=== PATIENT | female | born 1980 ===

== ENCOUNTER 2017-01-24 06:47 | Inpatient (IN) ==
[2017-01-22 12:05] LABS: Basophils % 0.3 % (0.0-0.8); Eosinophils # 0.2 10*3/uL (0.0-0.87); Eosinophils % 1.5 % (0.00-10.9); Hemoglobin 13.4 GM/DL (12.0-16.0); Immature Granulocytes % 0.4 %; Immature Granulocytes Absolute 0.04 #; Lymphocytes # 2.7 10*3/uL (1.4-4.0); Lymphocytes % 25.3 % (21.3-54.2); Mean Corpuscular HGB Conc 33.5 GM/DL (32-36); Mean Corpuscular Hemoglobin 28 PG (27-34); Mean Platelet Volume 10.4 FL (9.6-12.0); Monocytes # 0.6 10*3/uL (0.11-0.8); Monocytes % 5.5 % (1.7-12.7); Neutrophils # 7.3 10*3/uL (1.4-7.4); Platelet Count 255 T/CUMM (130-400); Red Blood Count 4.82 MC/CUMM (3.8-5.5); Red Cell Distribution Width 13.6 % (9.3-17.3); White Blood Count 10.9 T/CUMM (4-12)
[2017-01-22 12:20] LABS: Apearance,Urine Slightly Hazy (Clear); Bilirubin,Urine Negative (Negative); Blood, Urine Large mg/dL (Negative); Glucose,Urine (UA) >=500 mg/dL (Negative); Ketones,Urine Negative (Negative); Mucus,Urine Occasional /LPF (Occasional); Nitrite,Urine Negative (Negative); Protein,Urine 30 MG/DL; RBC,Urine 399 /HPF (0-4); Squamous Epithelial Cell,Urine Occasional /HPF (0-10); Urine Specific Gravity 1.026 (1.001-1.035); Urine Urobilinogen < 2.0 EU/DL (0.2-1.0); WBC,Urine 5 /HPF (0-6)
[2017-01-22 12:21] LABS: Urine Color Amber (Yellow)
[2017-01-22 12:41] LABS: Alanine Aminotransferase 21 U/L (13-56); Albumin 3.3 G/DL (3.4-5.0); Alkaline Phosphatase 148 U/L (45-117); Aspartate Amino Transferase 6 U/L (0-37); Bilirubin,Total < 0.39 MG/DL (0.2-1.0); Blood Urea Nitrogen 12 MG/DL (7-18); Calcium 8.4 MG/DL (8.5-10.1); Cholesterol 137 MG/DL (50-200); Glucose 326 MG/DL (74-106); HDL Cholesterol 31 MG/DL (40-60); Osmolality,Calculated 280.2 MOS/KG (273-304); Potassium 4.2 MMOL/L (3.5-5.1); Risk Ratio 4.42; Sodium 134 MMOL/L (136-145); Total Protein 6.9 G/DL (6.4-8.3); Triglycerides 204 MG/DL (2-150); VLDL CHOLESTEROL 40.8 MG/DL
[2017-01-22 13:45] LABS: HIV Antigen/Antibody Result Nonreactive (Nonreactive)
[~2017-01-24 06:47] MED LIST: AMPICILLIN/SULBACTAM 3,000 MG in SODIUM CHLORIDE 0.9% 100 ML IV ONE
[2017-01-24] MEDS ORDERED: AMPICILLIN/SULBACTAM 3,000 MG VIAL ONE (08:39)
[2017-01-24] MEDS ORDERED: LACTATED RINGERS 1,000 ML IV SCH (09:30)
[2017-01-24] MEDS ORDERED: DEXTROSE 50% 25 GM/50 ML VIAL IV PRN ×2 (10:12→12:39)
[2017-01-24] MEDS ORDERED: GLUCAGON 1 MG VIAL IM PRN ×2 (10:12→12:39)
[2017-01-24] MEDS ORDERED: MAGNESIUM HYDROXIDE SUSP 30 ML UDCUP PO PRN (10:12)
[2017-01-24] MEDS ORDERED: BENZOCAINE/MENTHOL LOZENGE 18/BOX PO PRN (10:12)
[2017-01-24] MEDS ORDERED: ACETAMINOPHEN 325 MG TABLET PO PRN (10:12)
[2017-01-24] MEDS ORDERED: DOCUSATE SODIUM 100 MG CAPSULE PO PRN (10:12)
[2017-01-24] MEDS ORDERED: ONDANSETRON 4 MG/2 ML VIAL IV PRN (10:12)
[2017-01-24] MEDS ORDERED: BISACODYL 10 MG SUPP RECTAL PRN (10:12)
[2017-01-24] MEDS ORDERED: NALOXONE 0.4 MG/ML VIAL IV PRN (10:15)
[2017-01-24] MEDS ORDERED: KETAMINE 500 MG/10 ML VIAL ONE (10:19)
[2017-01-24 10:26] LABS: Apearance,Urine CLEAR (Clear); Bacteria,Urine Occasional /HPF (Few); Bilirubin,Urine Negative (Negative); Blood, Urine Negative (Negative); Glucose,Urine (UA) >=500 mg/dL (Negative); Ketones,Urine Negative (Negative); Mucus,Urine Occasional /LPF (Occasional); Nitrite,Urine Negative (Negative); Protein,Urine Negative; RBC,Urine <1 /HPF (0-4); Squamous Epithelial Cell,Urine Occasional /HPF (0-10); Urine Color Yellow (Yellow); Urine Specific Gravity 1.009 (1.001-1.035); Urine Urobilinogen < 2.0 EU/DL (0.2-1.0); WBC,Urine <1 /HPF (0-6)
[2017-01-24] MEDS ORDERED: HYDROmorphone PCA 30 MG/30 ML SYRINGE IV SCH (10:30)
[2017-01-24] MEDS ORDERED: PROPOFOL 200 MG/20 ML VIAL IV ONE (10:33)
[2017-01-24] MEDS ORDERED: MIDAZOLAM 2 MG/2 ML VIAL ONE (10:34)
[2017-01-24] MEDS ORDERED: ACETAMINOPHEN 1,000 MG/100 ML VIAL IV ONE (10:34)
[2017-01-24] MEDS ORDERED: NEOSTIGMINE 10 MG/10 ML VIAL ONE (10:34)
[2017-01-24] MEDS ORDERED: METOCLOPRAMIDE 10 MG/2 ML VIAL ONE (10:34)
[2017-01-24] MEDS ORDERED: GLYCOPYRROLATE 0.4 MG/2 ML VIAL ONE (10:34)
[2017-01-24] MEDS ORDERED: SEVOFLURANE 1 UNIT/15 MINUTE INH ONE (10:34)
[2017-01-24] MEDS ORDERED: ONDANSETRON 4 MG/2 ML VIAL ONE (10:34)
[2017-01-24] MEDS ORDERED: SUCCINYLCHOLINE 200 MG/10 ML VIAL ONE (10:35)
[2017-01-24] MEDS ORDERED: SODIUM CHLORIDE 0.9% 1,000 ML IV ONE (10:35)
[2017-01-24] MEDS ORDERED: ROCURONIUM 100 MG/10 ML VIAL IV ONE (10:35)
[2017-01-24] MEDS ORDERED: HYDROmorphone 2 MG/1 ML VIAL ONE (10:38)
[2017-01-24] MEDS ORDERED: ALBUTEROL 2.5 MG/3 ML NEB RESP TX PRN (11:58)
[2017-01-24] MEDS: LACTATED RINGERS 1,000 ML IV SCH (18:00)
[2017-01-24] MEDS: INSULIN GLARGINE 100 UNIT/ML SUBCUT SCH (21:35)
[2017-01-25] MEDS: LACTATED RINGERS 1,000 ML IV SCH ×2 (00:13→05:15)
[2017-01-25 06:28] LABS: Basophils % 0.2 % (0.0-0.8); Eosinophils # 0.1 10*3/uL (0.0-0.87); Eosinophils % 0.6 % (0.00-10.9); Hematocrit 38.1 VOL% (35.7-47.0); Hemoglobin 12.3 GM/DL (12.0-16.0); Immature Granulocytes % 0.5 %; Immature Granulocytes Absolute 0.07 #; Lymphocytes # 2.2 10*3/uL (1.4-4.0); Lymphocytes % 16.8 % (21.3-54.2); Mean Corpuscular HGB Conc 32.3 GM/DL (32-36); Mean Corpuscular Hemoglobin 27 PG (27-34); Mean Corpuscular Volume 84.7 FL (87-102); Mean Platelet Volume 10.3 FL (9.6-12.0); Monocytes # 1.1 10*3/uL (0.11-0.8); Monocytes % 8.5 % (1.7-12.7); Neutrophils # 9.5 10*3/uL (1.4-7.4); Neutrophils % 73.4 % (38.7-73.9); Platelet Count 262 T/CUMM (130-400); Red Cell Distribution Width 13.9 % (9.3-17.3)
[2017-01-25] MEDS: IBUPROFEN 800 MG TABLET PO PRN ×2 (07:51→20:59)
[2017-01-25] MEDS: ATORVASTATIN 20 MG TABLET PO SCH (09:22)
[2017-01-25] MEDS: VENLAFAXINE XR 75 MG CAPSULE PO SCH (09:23)
[2017-01-25] MEDS: LOSARTAN 50 MG TABLET PO SCH (09:23)
[2017-01-25] MEDS ORDERED: MEPERIDINE 50 MG/1 ML VIAL IV PRN (11:16)
[2017-01-25] MEDS ORDERED: CLINDAMYCIN INJ 900 MG in PREMIX 1 EACH IV SCH (12:00)
[2017-01-25] MEDS ORDERED: metFORMIN 500 MG TABLET PO SCH (12:00)
[2017-01-25] MEDS: oxyCODONE/ACETAMINOPHEN 5-325 MG TABLET PO PRN ×2 (12:01→20:58)
[2017-01-25] MEDS: CLINDAMYCIN 300 MG CAPSULE PO SCH ×2 (12:11→18:06)
[2017-01-25] MEDS: ONDANSETRON 4 MG TABLET PO PRN ×2 (12:55→20:59)
[2017-01-25] MEDS: INSULIN GLARGINE 100 UNIT/ML SUBCUT SCH (21:11)
[2017-01-26] MEDS: CLINDAMYCIN 300 MG CAPSULE PO SCH ×3 (00:14→12:05)
[2017-01-26] MEDS ORDERED: METOCLOPRAMIDE 10 MG TABLET PO SCH (06:00)
[2017-01-26] MEDS ORDERED: metFORMIN 500 MG TABLET PO SCH (08:00)
[2017-01-26] MEDS: VENLAFAXINE XR 75 MG CAPSULE PO SCH (09:34)
[2017-01-26] MEDS: ATORVASTATIN 20 MG TABLET PO SCH (09:34)
[2017-01-26] MEDS: LOSARTAN 50 MG TABLET PO SCH (09:34)
[2017-01-26] MEDS ORDERED: MAGNESIUM CITRATE 300 ML BOTTLE PO ONE (10:09)
[2017-01-26 11:51] VITALS: BP 125/63
== END 2017-01-26 14:50 | disposition home or self-care (01) | DRG 513 ==
LOC: N.OR 06:47 → N.SDSINP 06:48 → N.OB 11:33
PROVIDERS: ADMIT Obstetrics & Gynecology; ATTEND Obstetrics & Gynecology

== ENCOUNTER 2020-10-06 10:06 | Inpatient (IN) ==
[2020-10-06 10:39] LABS: Basophils % 0.3 % (0.0-0.8); Eosinophils # 0.2 10*3/uL (0.0-0.87); Eosinophils % 2.1 % (0.00-10.9); Hematocrit 42.2 VOL% (35.7-47.0); Hemoglobin 13.6 GM/DL (12.0-16.0); Immature Granulocytes % 0.4 %; Immature Granulocytes Absolute 0.04 #; Lymphocytes # 3.4 10*3/uL (1.4-4.0); Lymphocytes % 29.6 % (21.3-54.2); Mean Corpuscular HGB Conc 32.2 GM/DL (32-36); Mean Corpuscular Volume 83.6 FL (87-102); Monocytes % 7.5 % (1.7-12.7); Neutrophils % 60.1 % (38.7-73.9); Platelet Count 363 T/CUMM (130-400); Red Blood Count 5.05 MC/CUMM (3.8-5.5); Red Cell Distribution Width 14.6 % (9.3-17.3); White Blood Count 11.4 T/CUMM (4-12)
[2020-10-06 10:57] LABS: Alanine Aminotransferase 21 U/L (13-56); Albumin 3.8 G/DL (3.4-5.0); Alkaline Phosphatase 103 U/L (45-117); Aspartate Amino Transferase 20 U/L (0-37); Bilirubin,Total < 0.39 MG/DL (0.20-1.00); Blood Urea Nitrogen 23 MG/DL (7-18); Calcium 9.4 MG/DL (8.5-10.1); Carbon Dioxide 23 MMOL/L (21-32); Estimated Glom Filtration Rate 105 ML/MIN; Glucose 157 MG/DL (74-106); Osmolality,Calculated 285.4 MOS/KG (273-304); Potassium 4.2 MMOL/L (3.5-5.1); Sodium 140 MMOL/L (136-145); Total Protein 7.2 G/DL (6.4-8.2)
[2020-10-06] MEDS ORDERED: ENOXAPARIN 150 MG/ML SYRINGE SUBCUT STA (11:10)
[2020-10-06] MEDS ORDERED: NITROGLYCERIN 2% OINT 1 INCH/GM PACK TOP STA (11:10)
[2020-10-06] MEDS ORDERED: ASPIRIN 325 MG TABLET PO STA (11:10)
[2020-10-06] MEDS ORDERED: ENOXAPARIN 30 MG/0.3 ML SYRINGE ONE (11:20)
[2020-10-06] MEDS ORDERED: ENOXAPARIN 120 MG/0.8 ML SYRINGE SUBCUT ONE (11:20)
[2020-10-06] MEDS ORDERED: MAGNESIUM SULF RIDER 2 GM/50 ML PREMIX IV PRN (12:26)
[2020-10-06] MEDS ORDERED: diphenhydrAMINE CAP 50 MG CAPSULE PO ONE (12:26)
[2020-10-06] MEDS ORDERED: DIAZEPAM 5 MG TABLET PO ONE (12:26)
[2020-10-06] MEDS ORDERED: POTASSIUM CHLORIDE RIDER 10 MEQ/100 ML PREMIX IV PRN (12:26)
[2020-10-06] MEDS ORDERED: SODIUM CHLORIDE 0.45% 1,000 ML IV SCH (12:30)
[2020-10-06 13:01] LABS: Risk Ratio 4.07; VLDL Cholesterol 21.6 MG/DL
[2020-10-06] MEDS ORDERED: ONDANSETRON 4 MG/2 ML VIAL IV PRN (13:45)
[2020-10-06] MEDS ORDERED: DEXTROSE 50% 25 GM/50 ML VIAL IV PRN (13:45)
[2020-10-06] MEDS ORDERED: ACETAMINOPHEN 325 MG TABLET PO PRN (13:45)
[2020-10-06] MEDS ORDERED: ZALEPLON 5 MG CAPSULE PO PRN (13:45)
[2020-10-06] MEDS ORDERED: ALBUTEROL/IPRATROPIUM 3 ML NEB RESP TX PRN (13:45)
[2020-10-06] MEDS ORDERED: GLUCAGON 1 MG VIAL IM PRN (13:45)
[2020-10-06] MEDS ORDERED: DOCUSATE SODIUM 100 MG CAPSULE PO PRN (13:45)
[2020-10-06] MEDS ORDERED: ALUMINUM/MAGNES/SIMETH MAX STR 30 ML UDCUP PO PRN (13:45)
[2020-10-06] MEDS ORDERED: diphenhydrAMINE CAP 25 MG CAPSULE ONE (14:51)
[2020-10-06] MEDS ORDERED: LIDOCAINE 1% 20 ML VIAL ONE (15:14)
[2020-10-06] MEDS ORDERED: fentaNYL 100 MCG/2 ML VIAL ONE (15:31)
[2020-10-06] MEDS ORDERED: MIDAZOLAM 2 MG/2 ML VIAL ONE (15:31)
[2020-10-06] MEDS ORDERED: HEPARIN 5,000 UNIT/1 ML VIAL ONE (15:42)
[2020-10-06] MEDS ORDERED: TIROFIBAN 5,000 MCG/100 ML PREMIX IV ONE (15:43)
[2020-10-06] MEDS ORDERED: TICAGRELOR 90 MG TABLET ONE (16:12)
[2020-10-06] MEDS ORDERED: NITROGLYCERIN DRIP 50 MG/250 ML BOTTLE IV ONE (16:16)
[2020-10-06] MEDS ORDERED: FAMOTIDINE 20 MG TABLET PO PRN (17:10)
[2020-10-06] MEDS ORDERED: CYCLOBENZAPRINE 10 MG TABLET PO PRN (17:16)
[2020-10-06] MEDS: ENOXAPARIN 40 MG/0.4 ML SYRINGE SUBCUT SCH (17:53)
[2020-10-06] MEDS: INSULIN LISPRO 100 UNIT/ML SUBCUT SCH ×2 (17:54→20:35)
[2020-10-06] MEDS: CALCIUM (CARBONATE)/VITAMIN D 600 MG-400 UNIT TABLET PO SCH (20:35)
[2020-10-06] MEDS: TICAGRELOR 90 MG TABLET PO SCH (20:35)
[2020-10-06] MEDS ORDERED: INSULIN GLARGINE 100 UNIT/ML SUBCUT SCH (21:00)
[2020-10-06] MEDS ORDERED: ATORVASTATIN 40 MG TABLET PO SCH (21:00)
[2020-10-06 23:46] LABS: Barbiturates Screen,Urine Negative (Negative); Benzodiazepines Screen,Urine Positive (Negative); Cannabinoid Screen,Urine Positive (Negative); Opiate Screen,Urine Negative (Negative); Phencyclidine Screen,Urine Negative (Negative)
[2020-10-07 01:06] LABS: Basophils % 0.3 % (0.0-0.8); Eosinophils # 0.3 10*3/uL (0.0-0.87); Eosinophils % 2.1 % (0.00-10.9); Hematocrit 37.4 VOL% (35.7-47.0); Hemoglobin 12.2 GM/DL (12.0-16.0); Immature Granulocytes % 0.3 %; Immature Granulocytes Absolute 0.04 #; Lymphocytes # 3.4 10*3/uL (1.4-4.0); Lymphocytes % 28.9 % (21.3-54.2); Mean Corpuscular HGB Conc 32.6 GM/DL (32-36); Mean Corpuscular Volume 82.2 FL (87-102); Mean Platelet Volume 9.9 FL (9.6-12.0); Monocytes % 6.8 % (1.7-12.7); Neutrophils % 61.6 % (38.7-73.9); Platelet Count 333 T/CUMM (130-400); Red Blood Count 4.55 MC/CUMM (3.8-5.5); Red Cell Distribution Width 14.5 % (9.3-17.3); White Blood Count 11.6 T/CUMM (4-12)
[2020-10-07 01:21] LABS: Calcium 8.8 MG/DL (8.5-10.1); Osmolality,Calculated 279.8 MOS/KG (273-304); Potassium 3.9 MMOL/L (3.5-5.1)
[2020-10-07] MEDS: INSULIN LISPRO 100 UNIT/ML SUBCUT SCH ×2 (08:08→12:09)
[2020-10-07] MEDS: TICAGRELOR 90 MG TABLET PO SCH (08:09)
[2020-10-07] MEDS: CALCIUM (CARBONATE)/VITAMIN D 600 MG-400 UNIT TABLET PO SCH (08:09)
[2020-10-07] MEDS ORDERED: METOPROLOL SUCCINATE XL 25 MG TABLET PO SCH (09:00)
[2020-10-07] MEDS ORDERED: ASPIRIN EC 81 MG TABLET PO SCH (09:00)
[2020-10-07] MEDS ORDERED: LOSARTAN 50 MG TABLET PO SCH (09:00)
[2020-10-07 11:44] VITALS: BP 140/75
[2020-10-07] MEDS: ENOXAPARIN 40 MG/0.4 ML SYRINGE SUBCUT SCH (15:35)
[2020-10-08] MEDS ORDERED: LOSARTAN 50 MG TABLET PO SCH (09:00)
== END 2020-10-07 15:50 | disposition home or self-care (01) | DRG 247 ==
LOC: N.EDINP 10:06 → N.ED 10:06 → N.TELES 14:57 → SUATTDRO 17:05
PROVIDERS: ADMIT Internal Medicine; ATTEND Internal Medicine
PROC: CLCCHCL (ICD-10-PCS; 2020-10-06 15:15)